=== PATIENT | male | born 1960 | race Caucasian/White ===

== ENCOUNTER 2018-09-25 13:03 | Emergency (ER) | payer OTHER, SELFPAY ==
--- NOTE | 2018-09-25 15:15 | EKG ---
Test Date: 2018-09-25 Test Time: 14:55:28 Artificial Limb Maker: MARIBELL MEASUREMENT RESULTS: Intervals: Rate: 65 MD: 164 QRSD: 112 QT: 428 QTc: 445 [place]: P: -25 MD: 164 QRS: 30 T: 59 INTERPRETIVE STATEMENTS: Normal sinus rhythm Normal ECG No previous ECG available for comparison Electronically Signed On 09-25-18 15:14:34 CDT by Corby Hernandez
[2018-09-25 15:18] LABS: Absolute Lymphocytes (CBC) 1.2 K/uL (0.7-4.9); Absolute Monocytes 0.6 K/uL (0.1-1.3); Absolute Neutrophil 1.2 K/uL (1.8-8.0); Basophils % 1.6 % (0-1.3); Eosinophils % 2.2 % (0-4.4); Hematocrit 42.6 % (39.6-49.0); Lymphocytes % 39.4 % (15.3-44.8); MPV 8.2 fL (7.6-11.3); Monocytes % 18.9 % (3.3-12.3); RBC Red Blood Cell Count 4.39 M/uL (4.33-5.43)
[2018-09-25 15:19] LABS: Protime INR 0.87
[2018-09-25 16:03] LABS: ALT/SGPT 104 U/L (12-78); AST/SGOT 140 U/L (15-37); Albumin 4.2 g/dL (3.4-5.0); Alkaline Phosphatase 54 U/L (45-117); BUN Blood Urea Nitrogen 8 mg/dL (7-18); Bicarbonate 30 mmol/L (21-32); Bilirubin Direct 0.1 mg/dL (0-0.2); Bilirubin Total 0.4 mg/dL (0.2-1.0); Glucose Level 90 mg/dL (74-106); Magnesium 2.2 mg/dL (1.8-2.4); NT PRO-BNP 8 pg/mL (<125); Potassium 4.2 mmol/L (3.5-5.1); Protein, Total 8.3 g/dL (6.4-8.2); Sodium Level 141 mmol/L (136-145); Troponin (Emerg Dept Use Only) < 0.02 ng/mL (0.0-0.045)
--- NOTE | 2018-09-25 16:46 | ER ---
Nurse's Notes [facility] Name: Roosevelt Landaverde Age: 58 yrs Sex: Male : 1960 Arrival Date: 09/25/2018 Time: 13:04 Bed 30 Private MD: Diagnosis: Malaise and fatigue Presentation: 09/25 13:22 Presenting complaint: Patient states: "I think it's stress. I hurt all over on the ss outside, but the inside does not feel bad." Onset was 3 years ago. Transition of care: patient was not received from another setting of care. Onset of symptoms. Risk Assessment: Do you want to hurt yourself or someone else? Patient reports no desire to harm self or others. Initial Sepsis Screen: Does the patient meet any 2 criteria? No. Patient's initial sepsis screen is negative. Does the patient have a suspected source of infection? No. Patient's initial sepsis screen is negative. Care prior to arrival: None. 13:22 Method Of Arrival: Ambulatory ss 13:22 Acuity: KATIUSKA 3 ss Historical: - Allergies: 13:25 PENICILLINS; ss - Home Meds: 13:25 None [Active]; ss - PMHx: 13:25 None; ss - PSHx: 13:25 Hernia repair; ss - Immunization history:: Adult Immunizations unknown. - Social history:: Smoking status: Patient uses tobacco products, smokes one pack cigarettes per day. - Ebola Screening: : Patient denies exposure to infectious person Patient denies travel to an Ebola-affected area in the 21 days before illness onset. Screenin:55 Abuse screen: Denies threats or abuse. Denies injuries from another. Nutritional mg2 screening: No deficits noted. Tuberculosis screening: No symptoms or risk factors identified. Fall Risk IV access (20 points). Assessment: 14:54 General: Appears in no apparent distress. comfortable, Behavior is calm, cooperative. mg2 Pain: Complains of pain in whole body Pain does not radiate. Pain currently is 3 out of 10 on a pain scale. Quality of pain is described as aching, Pain began gradually, months ago Is intermittent. Neuro: Level of Consciousness is awake, alert, obeys commands, Oriented to person, place, time, situation. Cardiovascular: Capillary refill < 3 seconds Patient's skin is warm and dry. Respiratory: Airway is patent Respiratory effort is even, unlabored, Respiratory pattern is regular, symmetrical. GI: No signs and/or symptoms were reported involving the gastrointestinal system. : No signs and/or symptoms were reported regarding the genitourinary system. EENT: No signs and/or symptoms were reported regarding the EENT system. Derm: Skin is intact, is healthy with good turgor, Skin is pink, warm \\T\\ dry. normal. Musculoskeletal: Circulation, motion, and sensation intact. Capillary refill < 3 seconds, Reports pain in back since months ago. 16:53 Reassessment: Patient appears in no apparent distress at this time. Patient and/or mg2 family updated on plan of care and expected duration. Pain level reassessed. Patient is alert, oriented x 3, equal unlabored respirations, skin warm/dry/pink. Patient states feeling better. Vital Signs: 13:25 BP 148 / 98; Pulse 86; Resp 16; Temp 98.1(TE); Pulse Ox 97% on R/A; Weight 74.84 kg; ss Height 5 ft. 10 in. (177.80 cm); Pain 7/10; 14:56 BP 162 / 105; Pulse 80; Resp 18; Pulse Ox 100% on R/A; Pain 3/10; mg2 15:43 BP 165 / 109; Pulse 81; Resp 18; Temp 98.2; Pulse Ox 98% on R/A; mg2 16:10 BP 141 / 93; mg2 16:53 BP 140 / 90; Pulse 81; Resp 18; Temp 98.2; Pulse Ox 100% on R/A; Pain 0/10; mg2 13:25 Body Mass Index 23.67 (74.84 kg, 177.80 cm) ED Course: 13:04 Patient arrived in ED. rg4 13:24 Triage completed. ss 13:25 Arm band placed on right wrist. ss 14:25 Gracy Rodrigues FNP-C is PHCP. kb 14:25 Fredy Tate MD is Attending Physician. kb 14:52 Paco Campuzano RN is Primary Nurse. mg2 14:55 EKG done, by hotel maintenance technician. reviewed by Fredy Tate MD. at1 14:56 Patient has correct armband on for positive identification. corporate accountant on. Pulse mg2 ox on. NIBP on. Door closed. Warm blanket given. 15:44 No provider procedures requiring assistance completed. Inserted saline lock: 20 gauge mg2 in right antecubital area, using aseptic technique. Blood collected. 16:54 IV discontinued, intact, bleeding controlled, No redness/swelling at site. Pressure mg2 dressing applied. Administered Medications: No medications were administered Outcome: 16:46 Discharge ordered by MD. molina 16:54 Discharged to home ambulatory, with family. mg2 16:54 Condition: good 16:54 Discharge instructions given to patient, family, Instructed on discharge instructions, follow up and referral plans. Demonstrated understanding of instructions, follow-up care. 16:54 Patient left the ED. mg2 Signatures: Gracy Rodrigues, RAWHIDE TRIMMER-C RAWHIDE TRIMMER-Mitchellb Soco Dunn, RN RN ss Christi Washington, winder tender EKG Tat1 Linda Allred4 Paco Campuzano RN RN mg2
--- NOTE | 2018-09-25 16:46 | EDPHYS ---
Physician Documentation [facility] Name: Roosevelt Landaverde Age: 58 yrs Sex: Male : 1960 Arrival Date: 09/25/2018 Time: 13:04 Bed 30 Private MD: ED Physician Fredy Tate HPI: 09/25 16:48 This 58 yrs old Male presents to ER via Ambulatory with complaints of Pain kb All Over. 16:49 Pt reports outer body pain that started 2-3 months ago that he thinks is due to stress, kb but wanted to make sure it was nothing else. Reports "I don't have any pain on the inside, just the outside." Reports he has been a daily drinker since the age of 16. Drinks approx 20oz of vodka daily and smoke a pack of cigarettes per day. Onset: The symptoms/episode began/occurred 3 month(s) ago. Severity of symptoms: At their worst the symptoms were moderate in the emergency department the symptoms are unchanged. The patient has not experienced similar symptoms in the past. The patient has not recently seen a physician. Historical: - Allergies: 13:25 PENICILLINS; ss - Home Meds: 13:25 None [Active]; ss - PMHx: 13:25 None; ss - PSHx: 13:25 Hernia repair; ss - Immunization history:: Adult Immunizations unknown. - Social history:: Smoking status: Patient uses tobacco products, smokes one pack cigarettes per day. - Ebola Screening: : Patient denies exposure to infectious person Patient denies travel to an Ebola-affected area in the 21 days before illness onset. ROS: 16:48 ENT: Negative for injury, pain, and discharge, Neck: Negative for injury, pain, and kb swelling, Cardiovascular: Negative for chest pain, palpitations, and edema, Respiratory: Negative for shortness of breath, cough, wheezing, and pleuritic chest pain, Abdomen/GI: Negative for abdominal pain, nausea, vomiting, diarrhea, and constipation, MS/Extremity: Negative for injury and deformity, Skin: Negative for injury, rash, and discoloration, Neuro: Negative for headache, weakness, numbness, tingling, and seizure. 16:48 Constitutional: Positive for body aches. Exam: 16:48 Constitutional: This is a well developed, well nourished patient who is awake, alert, kb and in no acute distress. Head/Face: Normocephalic, atraumatic. ENT: Nares patent. No nasal discharge, no septal abnormalities noted. Tympanic membranes are normal and external auditory canals are clear. Oropharynx with no redness, swelling, or masses, exudates, or evidence of obstruction, uvula midline. Mucous membranes moist. Neck: Trachea midline, no thyromegaly or masses palpated, and no cervical lymphadenopathy. Supple, full range of motion without nuchal rigidity, or vertebral point tenderness. No Meningismus. Chest/axilla: Normal chest wall appearance and motion. Nontender with no deformity. No lesions are appreciated. Cardiovascular: Regular rate and rhythm with a normal S1 and S2. No gallops, murmurs, or rubs. Normal PMI, no JVD. No pulse deficits. Respiratory: Lungs have equal breath sounds bilaterally, clear to auscultation and percussion. No rales, rhonchi or wheezes noted. No increased work of breathing, no retractions or nasal flaring. Abdomen/GI: Soft, non-tender, with normal bowel sounds. No distension or tympany. No guarding or rebound. No evidence of tenderness throughout. Skin: Warm, dry with normal turgor. Normal color with no rashes, no lesions, and no evidence of cellulitis. MS/ Extremity: Pulses equal, no cyanosis. Neurovascular intact. Full, normal range of motion. Neuro: Awake and alert, GCS 15, oriented to person, place, time, and situation. Cranial nerves II-XII grossly intact. Motor strength 5/5 in all extremities. Sensory grossly intact. Cerebellar exam normal. Normal gait. Vital Signs: 13:25 BP 148 / 98; Pulse 86; Resp 16; Temp 98.1(TE); Pulse Ox 97% on R/A; Weight 74.84 kg; ss Height 5 ft. 10 in. (177.80 cm); Pain 7/10; 14:56 BP 162 / 105; Pulse 80; Resp 18; Pulse Ox 100% on R/A; Pain 3/10; mg2 15:43 BP 165 / 109; Pulse 81; Resp 18; Temp 98.2; Pulse Ox 98% on R/A; mg2 16:10 BP 141 / 93; mg2 16:53 BP 140 / 90; Pulse 81; Resp 18; Temp 98.2; Pulse Ox 100% on R/A; Pain 0/10; mg2 13:25 Body Mass Index 23.67 (74.84 kg, 177.80 cm) ss MDM: 14:27 Patient medically screened. kb 16:48 Data reviewed: vital signs, nurses notes. Data interpreted: Pulse oximetry: on room air kb is 98 %. Interpretation: normal. Counseling: I had a detailed discussion with the patient and/or guardian regarding: the historical points, exam findings, and any diagnostic results supporting the discharge/admit diagnosis, lab results, radiology results, the need for outpatient follow up, a family practitioner, to return to the emergency department if symptoms worsen or persist or if there are any questions or concerns that arise at home. 09/25 14:43 Order name: Basic Metabolic Panel; Complete Time: 16:07 kb 09/25 14:43 Order name: CBC with Diff; Complete Time: 15:36 kb 09/25 14:43 Order name: LFT's; Complete Time: 16:07 kb 09/25 14:43 Order name: Magnesium; Complete Time: 16:07 kb 09/25 14:43 Order name: NT PRO-BNP; Complete Time: 16:07 kb 09/25 14:43 Order name: PT-INR; Complete Time: 15:32 kb 09/25 14:43 Order name: Troponin (emerg Dept Use Only); Complete Time: 16:07 kb 09/25 14:43 Order name: EKG; Complete Time: 14:44 kb 09/25 14:43 Order name: Cardiac monitoring; Complete Time: 15:19 kb 09/25 14:43 Order name: EKG - Nurse/Tech; Complete Time: 15:19 kb 09/25 14:43 Order name: IV Saline Lock; Complete Time: 15:19 kb 09/25 14:43 Order name: Labs collected and sent; Complete Time: 15:19 kb 09/25 14:43 Order name: O2 Per Protocol; Complete Time: 15:19 kb 09/25 14:43 Order name: O2 Sat Monitoring; Complete Time: 15:19 kb Administered Medications: No medications were administered Disposition: 09/26 07:01 Co-signature as Attending Physician, Fredy Tate MD I agree with the assessment and thalia plan of care. Disposition: 09/25/18 16:46 Discharged to Home. Impression: Malaise and fatigue. - Condition is Stable. - Discharge Instructions: Stress and Stress Management. - Medication Reconciliation Form, Thank You Letter, Antibiotic Education, Prescription Opioid Use form. - Follow up: Emergency Department; When: As needed; Reason: Worsening of condition. Follow up: Private Physician; When: 2 - 3 days; Reason: Recheck today's complaints, Continuance of care, Re-evaluation by your physician. Signatures: Dispatcher [employer] EDGracy Parker, GLORIA THAKKAR-Fredy Remy MD MD cha Smirch, Shelby, CEE RN ss Paco Campuzano RN RN mg2 Corrections: (The following items were deleted from the chart) 09/25 16:54 16:46 09/25/2018 16:46 Discharged to Home. Impression: Malaise and fatigue. Condition mg2 is Stable. Forms are Medication Reconciliation Form, Thank You Letter, Antibiotic Education, Prescription Opioid Use. Follow up: Emergency Department; When: As needed; Reason: Worsening of condition. Follow up: Private Physician; When: 2 - 3 days; Reason: Recheck today's complaints, Continuance of care, Re-evaluation by your physician. kb
== END 2018-09-25 16:54 | disposition home or self-care (01) ==
LOC: ER 13:03
DX: R53.83 Other fatigue (principal); R53.81 Other malaise; Z88.0 Allergy status to penicillin; F17.210 Nicotine dependence, cigarettes, uncomplicated
CPT/HCPCS: 36415; 80048; 80076; 83735; 83880; 84484; 85025; 85610; 93005; 99284

== ENCOUNTER 2019-01-15 15:53 | Emergency (ER) | payer SELFPAY ==
[2019-01-15] MEDS ORDERED: LIDOCAINE 1% MPF 5 ML VIAL ONE (16:12)
[2019-01-15] MEDS ORDERED: LIDOCAINE 2% W/EPI 1:200,000 MPF 20 ML VIAL IM ONE (16:13)
[2019-01-15] MEDS ORDERED: TETANUS & DIPHTHERIA TOX,ADULT 0.5 ML VIAL ONE (16:28)
--- NOTE | 2019-01-15 16:31 | ER ---
Nurse's Notes [facility] Name: Roosevelt Landaverde Age: 58 yrs Sex: Male : 1960 Arrival Date: 01/15/2019 Time: 15:57 Bed 28 Private MD: Diagnosis: Laceration without foreign body of lower leg-right calf Presentation: 01/15 15:57 Presenting complaint: Patient states: around 3:30 pm today, i was moving glasses and a hj piece of glass caught my R lower leg area;. Transition of care: patient was not received from another setting of care. Onset of symptoms was January 15, 2019. Risk Assessment: Do you want to hurt yourself or someone else? Patient reports no desire to harm self or others. Initial Sepsis Screen: Does the patient meet any 2 criteria? No. Patient's initial sepsis screen is negative. Does the patient have a suspected source of infection? No. Patient's initial sepsis screen is negative. Care prior to arrival: None. 15:57 Method Of Arrival: Ambulatory 15:57 Acuity: KATIUSKA 4 hj Historical: - Allergies: 15:58 PENICILLINS; hj - PMHx: 15:58 None; hj - PSHx: 15:58 Hernia repair; hj - Immunization history:: Adult Immunizations up to date, Last tetanus immunization: unknown. - Social history:: Smoking status: unknown. - Ebola Screening: : No symptoms or risks identified at this time. Screenin:46 Abuse screen: Denies threats or abuse. Denies injuries from another. Nutritional rv screening: No deficits noted. Tuberculosis screening: No symptoms or risk factors identified. Fall Risk None identified. Assessment: 16:10 General: Appears in no apparent distress. comfortable, Behavior is calm, cooperative. rv Pain: Complains of pain in right leg. Neuro: Level of Consciousness is awake, alert, obeys commands, Oriented to person, place, time, situation. Cardiovascular: Patient's skin is warm and dry. Respiratory: Airway is patent. 16:10 GI: No signs and/or symptoms were reported involving the gastrointestinal system. : rv No signs and/or symptoms were reported regarding the genitourinary system. EENT: No signs and/or symptoms were reported regarding the EENT system. Derm: Wound noted right calf Wound is laceration. Musculoskeletal: No signs and/or symptoms reported regarding the musculoskeletal system. Vital Signs: 15:59 BP 109 / 75; Pulse 87; Resp 18; Temp 98.9(TE); Pulse Ox 98% on R/A; Weight 68.04 kg; hj Height 5 ft. 10 in. (177.80 cm); Pain 0/10; 16:42 BP 112 / 81; Pulse 88; Resp 16; Pulse Ox 98% ; rv 15:59 Body Mass Index 21.52 (68.04 kg, 177.80 cm) ED Course: 15:57 Patient arrived in ED. mr 15:58 Triage completed. 15:58 Fredy Go PA is PHCP. cp 15:58 Fredy Tate MD is Attending Physician. cp 15:59 Arm band placed on left wrist. hj 16:05 Neo Cutler, CEE is Primary Nurse. rv 16:10 Patient has correct armband on for positive identification. Bed in low position. Call rv light in reach. Side rails up X 1. Pulse ox on. NIBP on. 16:41 Assist provider with laceration repair on right calf that was 2.5 cm. or less using rv sutures. Set up tray. Performed by Fredy GROSS Dressed with 4X4s. Patient did not have IV access during this emergency room visit. 16:41 Wound care: to laceration located on right calf was cleaned with Hibiclens, irrigated rv with normal saline, dressed with 4X4s, roll gauze, Patient tolerated well. Administered Medications: 16:33 Drug: Tetanus-Diphtheria Toxoid Adult 0.5 ml {Director Targeted Marketing: [employer]. Exp: rv 08/31/2020. Lot #: [id number]. } Route: IM; Site: right deltoid; 16:39 Follow up: Response: No adverse reaction rv 16:39 Drug: Lidocaine-Epinephrine -1%: (1:100,000) 5 ml Volume: 20 ml; Route: Infiltration; rv Outcome: 16:31 Discharge ordered by . cp 16:47 Discharged to home ambulatory. rv 16:47 Condition: improved 16:47 Discharge instructions given to patient, Instructed on discharge instructions, follow up and referral plans. wound care, Demonstrated understanding of instructions, follow-up care, wound care. 16:48 Patient left the ED. rv Signatures: Johana Nielson Kenyon Del Valle RN RN hj Fredy Go PA PA cp Vicente, Ronaldo, RN RN rv Corrections: (The following items were deleted from the chart) 16:01 15:59 Pulse 87bpm; Resp 18bpm; Pulse Ox 98% RA; Temp 98.9F Temporal; 68.04 kg; Height 5 hj ft. 10 in.; BMI: 21.5; Pain 0/10; hj
--- NOTE | 2019-01-15 16:32 | EDPHYS ---
Physician Documentation [facility] Name: Roosevelt Landaverde Age: 58 yrs Sex: Male : 1960 Arrival Date: 01/15/2019 Time: 15:57 Bed 28 Private MD: ED Physician Fredy Tate HPI: 01/15 16:11 This 58 yrs old Male presents to ER via Ambulatory with complaints of cp Laceration To Leg. 16:11 The patient has a laceration related to: working, sharp edge of glass, and there are no cp complicating factors. The laceration(s) is(are) located on the right calf. Onset: The symptoms/episode began/occurred today, 45 minute(s) ago. Associated signs and symptoms: Pertinent negatives: heavy bleeding, suspected foreign body. Historical: - Allergies: 15:58 PENICILLINS; hj - PMHx: 15:58 None; hj - PSHx: 15:58 Hernia repair; hj - Immunization history:: Adult Immunizations up to date, Last tetanus immunization: unknown. - Social history:: Smoking status: unknown. - Ebola Screening: : No symptoms or risks identified at this time. ROS: 16:13 Constitutional: Negative for fever. cp 16:13 Skin: Positive for laceration(s), of the right calf, Negative for heavy bleeding , suspected foreign body. 16:13 Neuro: Negative for numbness, weakness. 16:13 All other systems are negative. Exam: 16:20 Head/Face: Normocephalic, atraumatic. cp 16:20 Constitutional: The patient appears in no acute distress, alert, awake, well developed, well nourished. 16:20 Skin: injury, laceration(s), the wound is approximately 3 cm(s), of the right calf, cp that can be described as clean, no foreign body, linear, with mild bleeding. 16:20 Neuro: Sensation: is normal. cp Vital Signs: 15:59 BP 109 / 75; Pulse 87; Resp 18; Temp 98.9(TE); Pulse Ox 98% on R/A; Weight 68.04 kg; hj Height 5 ft. 10 in. (177.80 cm); Pain 0/10; 16:42 BP 112 / 81; Pulse 88; Resp 16; Pulse Ox 98% ; rv 15:59 Body Mass Index 21.52 (68.04 kg, 177.80 cm) hj Laceration: 16:29 Wound Repair of 3cm ( 1.2in ) subcutaneous laceration to right calf. Linear shaped.. cp Distal neuro/vascular/tendon intact. Anesthesia: Wound infiltrated with 5 mls of 2% lidocaine. Wound prep: Moderate cleansing by me, Wound irrigation by me. Skin closed with 3 4-0 Prolene using interrupted sutures and sterile technique. Dressed with Bacitracin, 4x4's. Patient tolerated well. MDM: 16:02 Patient medically screened. cp 16:15 Differential diagnosis: superficial laceration, vascular injury, puncture wound. cp 16:30 Data reviewed: vital signs, nurses notes, and as a result, I will discharge patient. cp 16:30 Counseling: I had a detailed discussion with the patient and/or guardian regarding: the cp historical points, exam findings, and any diagnostic results supporting the discharge/admit diagnosis, to return to the emergency department if symptoms worsen or persist or if there are any questions or concerns that arise at home. 16:30 Response to treatment: the patient's symptoms have markedly improved after treatment, cp and as a result, I will discharge patient. 01/15 16:11 Order name: Vicryl, Sutures; Complete Time: 16:16 01/15 16:11 Order name: Dressing - Wound; Complete Time: 16:16 cp 01/15 16:11 Order name: Gloves, Sterile; Complete Time: 16:16 01/15 16:11 Order name: Setup Suture Tray; Complete Time: 16:16 cp Administered Medications: 16:33 Drug: Tetanus-Diphtheria Toxoid Adult 0.5 ml {Contour Sander: [employer]. Exp: rv 08/31/2020. Lot #: [id number]. } Route: IM; Site: right deltoid; 16:39 Follow up: Response: No adverse reaction rv 16:39 Drug: Lidocaine-Epinephrine -1%: (1:100,000) 5 ml Volume: 20 ml; Route: Infiltration; rv Disposition: 17:00 Chart complete. cp Disposition: 01/15/19 16:31 Discharged to Home. Impression: Laceration without foreign body of lower leg - right calf. - Condition is Stable. - Discharge Instructions: Laceration Care, Adult. - Medication Reconciliation Form, Thank You Letter, Antibiotic Education, Prescription Opioid Use form. - Follow up: Private Physician; When: 7 - 10 days; Reason: Staple/Suture removal. - Problem is new. - Symptoms have improved. Addendum: 01/16/2019 20:36 Co-signature as Attending Physician, Fredy Tate MD I agree with the assessment and c p[place] plan of care. Signatures: Fredy Tate MD MD cha Joaquin, Henry RN RN Fredy Go PA PA cp Neo Cutler, RN RN rv Corrections: (The following items were deleted from the chart) 01/15 16:48 16:31 01/15/2019 16:31 Discharged to Home. Impression: Laceration without foreign body rv of lower leg - right calf. Condition is Stable. Forms are Medication Reconciliation Form, Thank You Letter, Antibiotic Education, Prescription Opioid Use. Follow up: Private Physician; When: 7 - 10 days; Reason: Staple/Suture removal. Problem is new. Symptoms have improved. cp 01/16 15:46 15:44 Skin: injury, laceration(s), the wound is approximately 3 cm(s), of the right cp calf, that can be described as clean, no foreign body, linear, with mild bleeding, cp
== END 2019-01-15 16:48 | disposition home or self-care (01) ==
LOC: ER 15:53
PROC: 0JQN0ZZ Repair Right Lower Leg Subcutaneous Tissue and Fascia, Open Approach (ICD-10-PCS; principal; 2019-01-15)
DX: S81.811A Laceration without foreign body, right lower leg, initial encounter (principal); W25.XXXA Contact with sharp glass, initial encounter; Y93.89 Activity, other specified; Y92.89 Other specified places as the place of occurrence of the external cause; Y99.8 Other external cause status; Z23 Encounter for immunization; Z88.0 Allergy status to penicillin
CPT/HCPCS: 90471; 90714; 99284

== ENCOUNTER 2020-02-07 07:56 | Emergency (ER) | payer SELFPAY ==
[2020-02-07] MEDS ORDERED: KETOROLAC 30 MG/ML INJ ONE (08:46)
--- NOTE | 2020-02-07 09:01 | ER ---
Nurse's Notes [facility] Name: Roosevelt Landaverde Age: 59 yrs Sex: Male : 1960 Arrival Date: 02/07/2020 Time: 07:58 Bed 14 Private MD: Diagnosis: Sciatica, right side Presentation: 02/06 08:09 Chief complaint: Patient states: about three weeks ago started having back pain, is an iw alcoholic and thought it was his liver, pain moved from left side over to middle of back then down to his tail bone, it's hard to walk, denies injury, does a lot of manual labor, also his right foot feels like pins and needles. Coronavirus screen: At this time, the client does not indicate any symptoms associated with coronavirus-19. Ebola Screen: Patient negative for fever greater than or equal to 101.5 degrees Fahrenheit, and additional compatible Ebola Virus Disease symptoms Patient denies exposure to infectious person. Patient denies travel to an Ebola-affected area in the 21 days before illness onset. No symptoms or risks identified at this time. Initial Sepsis Screen: Does the patient meet any 2 criteria? No. Patient's initial sepsis screen is negative. Does the patient have a suspected source of infection? No. Patient's initial sepsis screen is negative. Risk Assessment: Do you want to hurt yourself or someone else? Patient reports no desire to harm self or others. Onset of symptoms was January 18, 2020. 08:09 Method Of Arrival: Ambulatory iw 08:09 Acuity: KATIUSKA 3 iw Historical: - Allergies: 08:13 PENICILLINS (diarrhea); iw - Home Meds: 08:13 Centrum Silver 0.4-300-250 mg-mcg-mcg oral tab [Active]; iw - PMHx: 08:13 Alcoholism; iw - PSHx: 08:13 Hernia repair; iw - Immunization history:: Adult Immunizations not up to date. - Social history:: Smoking status: Patient reports the use of cigarette tobacco products, smokes one pack cigarettes per day. Patient uses alcohol, 8-10 oz whiskey per day . Screenin:42 Abuse screen: Denies threats or abuse. Denies injuries from another. Nutritional iw screening: No deficits noted. Tuberculosis screening: No symptoms or risk factors identified. Fall Risk None identified. Assessment: 08:42 General: Appears in no apparent distress. Behavior is calm, cooperative. Pain: iw Complains of pain in right leg and right low back. Neuro: Level of Consciousness is awake, alert, obeys commands, Oriented to person, place, time, situation, Moves all extremities. Cardiovascular: Patient's skin is warm and dry. Respiratory: Respiratory effort is even, unlabored, Respiratory pattern is regular. GI: Patient currently denies abdominal pain. Derm: Skin is intact, is healthy with good turgor. Musculoskeletal: Range of motion: intact in all extremities. Vital Signs: 08:09 BP 142 / 87; Pulse 89; Resp 16; Temp 98.1; Pulse Ox 97% on R/A; Weight 72.57 kg; Height iw 5 ft. 9 in. (175.26 cm); Pain 7/10; 08:09 Body Mass Index 23.63 (72.57 kg, 175.26 cm) iw ED Course: 07:58 Patient arrived in ED. ds1 08:00 Gracy Rodrigues FNP-C is [facility]. kb 08:00 Dez Bro MD is Attending Physician. kb 08:12 Triage completed. iw 08:13 Arm band placed on. iw 08:24 Batsheva Dejesus, CEE is Primary Nurse. iw 08:42 Patient has correct armband on for positive identification. iw 09:01 No provider procedures requiring assistance completed. Patient did not have IV access iw during this emergency room visit. Administered Medications: 08:39 Drug: TORadol 30 mg Route: IM; Site: left deltoid; iw Outcome: 09:00 Discharge ordered by . kb 09:10 Discharged to home ambulatory. iw 09:10 Condition: good 09:10 Discharge instructions given to patient, Instructed on discharge instructions, follow up and referral plans. medication usage, Demonstrated understanding of instructions, follow-up care, medications, Prescriptions given X 2. 09:11 Patient left the ED. iw Signatures: Gracy Rodrigues FNP-C FNP-Ckb [place]ford, Demi ds1 Batsheva Dejesus, RN RN iw Corrections: (The following items were deleted from the chart) 08:24 08:09 BP 142 / 87; Pulse 89bpm; Resp 16bpm; Pulse Ox 97% RA; Temp 98.1F; 72.57 kg; iw Height 5 ft. 9 in.; BMI: 23.6; Pain 7/10; iw
--- NOTE | 2020-02-07 09:01 | EDPHYS ---
Physician Documentation [facility] Name: Roosevelt Landaverde Age: 59 yrs Sex: Male : 1960 Arrival Date: 02/07/2020 Time: 07:58 Bed 14 Private MD: ED Physician Dez Bro HPI: 02/06 08:33 This 59 yrs old Male presents to ER via Ambulatory with complaints of Back kb Pain. 08:33 The patient presents with pain that is acute, with no known mechanism of injury. The kb symptoms are located in the right low back. Onset: The symptoms/episode began/occurred 3 week(s) ago. The pain radiates to the right leg. Associated signs and symptoms: The patient has no apparent associated signs or symptoms. The problem was sustained without known cause. Modifying factors: The patient symptoms are alleviated by nothing, the patient symptoms are aggravated by any movement. Severity of symptoms: At their worst the symptoms were moderate, in the emergency department the symptoms are unchanged. The patient has not experienced similar symptoms in the past. The patient has not recently seen a physician. Pt reports he developed left flank pain 3 weeks ago that has since moved to right lower back, middle back, and now it is in right buttock. Reports he had radiating pain causing pins and needles to right foot. Pt reports he was concerned it was his liver going out when it started 3 weeks ago because he drinks 6-8oz of whiskey daily for 40 years. Historical: - Allergies: 08:13 PENICILLINS (diarrhea); iw - Home Meds: 08:13 Centrum Silver 0.4-300-250 mg-mcg-mcg oral tab [Active]; iw - PMHx: 08:13 Alcoholism; iw - PSHx: 08:13 Hernia repair; iw - Immunization history:: Adult Immunizations not up to date. - Social history:: Smoking status: Patient reports the use of cigarette tobacco products, smokes one pack cigarettes per day. Patient uses alcohol, 8-10 oz whiskey per day . ROS: 08:31 Constitutional: Negative for fever, chills, and weight loss, Cardiovascular: Negative kb for chest pain, palpitations, and edema, Respiratory: Negative for shortness of breath, cough, wheezing, and pleuritic chest pain, Abdomen/GI: Negative for abdominal pain, nausea, vomiting, diarrhea, and constipation, MS/Extremity: Negative for injury and deformity, Skin: Negative for injury, rash, and discoloration, Neuro: Negative for headache, weakness, numbness, tingling, and seizure. 08:31 Back: Positive for pain at rest, radiated pain, of the right low back. Exam: 08:31 Constitutional: This is a well developed, well nourished patient who is awake, alert, kb and in no acute distress. Head/Face: Normocephalic, atraumatic. Chest/axilla: Normal chest wall appearance and motion. Nontender with no deformity. No lesions are appreciated. Cardiovascular: Regular rate and rhythm with a normal S1 and S2. No gallops, murmurs, or rubs. Normal PMI, no JVD. No pulse deficits. Respiratory: Lungs have equal breath sounds bilaterally, clear to auscultation and percussion. No rales, rhonchi or wheezes noted. No increased work of breathing, no retractions or nasal flaring. Abdomen/GI: Soft, non-tender, with normal bowel sounds. No distension or tympany. No guarding or rebound. No evidence of tenderness throughout. Back: No spinal tenderness. No costovertebral tenderness. Full range of motion. Skin: Warm, dry with normal turgor. Normal color with no rashes, no lesions, and no evidence of cellulitis. MS/ Extremity: Pulses equal, no cyanosis. Neurovascular intact. Full, normal range of motion. Neuro: Awake and alert, GCS 15, oriented to person, place, time, and situation. Cranial nerves II-XII grossly intact. Motor strength 5/5 in all extremities. Sensory grossly intact. Cerebellar exam normal. Normal gait. Vital Signs: 08:09 BP 142 / 87; Pulse 89; Resp 16; Temp 98.1; Pulse Ox 97% on R/A; Weight 72.57 kg; Height iw 5 ft. 9 in. (175.26 cm); Pain 7/10; 08:09 Body Mass Index 23.63 (72.57 kg, 175.26 cm) iw MDM: 08:15 Patient medically screened. kb 08:28 Data reviewed: vital signs, nurses notes. Data interpreted: Pulse oximetry: on room air kb is 97 %. Interpretation: normal. ED course: Pt refused CT and blood work. States "I don't have insurance so I don't want to do anything that we don't have to. I haven't fallen. 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 Verbal understanding received. . 08:32 ED course: Pt has no tenderness on exam (vertebral , flank, or abd). Pt denies any kb urinary symptoms. No n/v/d. Ambulates with steady gait. Pain is only to mid right buttock today. 09:00 Counseling: I had a detailed discussion with the patient and/or guardian regarding: the kb historical points, exam findings, and any diagnostic results supporting the discharge/admit diagnosis, lab results, the need for outpatient follow up, a family practitioner, to return to the emergency department if symptoms worsen or persist or if there are any questions or concerns that arise at home. 02/06 09:01 Order name: Urine Dipstick--Ancillary (enter results) em1 02/06 08:23 Order name: Urine Dipstick-Ancillary (obtain specimen); Complete Time: 08:59 kb Administered Medications: 08:39 Drug: TORadol 30 mg Route: IM; Site: left deltoid; iw Disposition: 11:13 Co-signature as Attending Physician, Dez Bro MD I agree with the assessment and kdr plan of care. Disposition: 02/07/20 09:00 Discharged to Home. Impression: Sciatica, right side. - Condition is Stable. - Discharge Instructions: Sciatica, [id number], Back Exercises, [id number]. - Prescriptions for Ibuprofen 800 mg Oral Tablet - take 1 tablet by ORAL route every 8 hours As needed take with food; 30 tablet. orphenadrine citrate 100 mg Oral Tablet Sustained Release - take 1 tablet by ORAL route 2 times per day As needed; 20 tablet. - Medication Reconciliation Form, Thank You Letter, Antibiotic Education, Prescription Opioid Use form. - Follow up: Emergency Department; When: As needed; Reason: Worsening of condition. Follow up: Private Physician; When: 2 - 3 days; Reason: Recheck today's complaints, Continuance of care, Re-evaluation by your physician. Signatures: Dispatcher [facility]rieGracy Parker, ROCK LATHER-C ROCK LATHER-Ckb Dez Bro MD MD kdr Batsheva Dejesus, RN RN iw Corrections: (The following items were deleted from the chart) 09:11 09:00 02/07/2020 09:00 Discharged to Home. Impression: Sciatica, right side. Condition iw is Stable. Forms are Medication Reconciliation Form, Thank You Letter, Antibiotic Education, Prescription Opioid Use. Follow up: Emergency Department; When: As needed; Reason: Worsening of condition. Follow up: Private Physician; When: 2 - 3 days; Reason: Recheck today's complaints, Continuance of care, Re-evaluation by your physician. kb
[2020-02-07 09:19] VITALS: BP 142/87; TEMP 98.1; O2SAT 97
[2020-02-07 11:29] LABS: Urine Blood 1+ (NEG); Urine Glucose NEGATIVE (NEG); Urine Protein 2+ (NEG); Urine Specific Gravity >1.030 (1.005-1.030); Urine pH 5.5 (5.0-7.0)
== END 2020-02-07 09:11 | disposition home or self-care (01) ==
LOC: ER 07:56
DX: M54.31 Sciatica, right side (principal); F10.20 Alcohol dependence, uncomplicated; F17.210 Nicotine dependence, cigarettes, uncomplicated; Z88.0 Allergy status to penicillin
CPT/HCPCS: 81003; 96372; 99283